=== PATIENT | female | born 1950 | race Caucasian/White ===

== ENCOUNTER 2019-02-12 15:03 | Emergency (ER) | payer MEDICARE ==
[2019-02-12] MEDS ORDERED: Sodium Chloride 0.9% 1,000 ML IV ONE (15:37)
--- NOTE | 2019-02-12 15:46 | EDM.PDOC ---
ED HPI GENERAL MEDICAL PROBLEM - General Chief Complaint: Syncope Stated Complaint: PASSED OUT Time Seen by Provider: 02/12/19 15:05 Source of Information: Reports: Patient, Family History Limitations: Reports: No Limitations - History of Present Illness INITIAL COMMENTS - FREE TEXT/NARRATIVE: 68 y.o.w.esther came with her family to the ed because she "past nearly" while in her kitchen. She suddenly fainted got weak and dizzy, nmade it "to chair just in time" just in time not to fall. Pt did not pass out. She did urinated a "a lot " in the past few days. No heart palpitations. Pt sated she was improving on the way to the ed and feels much better now. No N/V/D, no dizziness. Similar symptoms occurred about a year ago. At that time, she did not seek medical attention. No C/P, no SOB or any other acute med issues. BP 112/74Pulse 64 RR 17 Pulse ox 97% on RA Temp 36.6 Onset Date: 02/12/19 Onset Time: 14:00 Duration: Hour(s):, Improving Location: Reports: Generalized Quality: Reports: Other Severity: Mild Improves with: Reports: Rest Worsens with: Reports: Movement Context: Reports: Other Associated Symptoms: Reports: No Other Symptoms - Related Data Allergies Allergy/AdvReac Type Severity Reaction Status Date / Time Penicillins Allergy Hives Verified 02/12/19 15:26 Home Meds: Home Meds Ciprofloxacin HCl [Cipro] 500 mg PO BID #20 tablet 02/12/19 [Rx] ED ROS GENERAL - Review of Systems Review Of Systems: See Below Constitutional: Reports: No Symptoms HEENT: Reports: No Symptoms Respiratory: Reports: No Symptoms Cardiovascular: Reports: No Symptoms Endocrine: Reports: No Symptoms GI/Abdominal: Reports: No Symptoms : Reports: Urgency (to urinale) Musculoskeletal: Reports: No Symptoms Skin: Reports: No Symptoms Neurological: Reports: No Symptoms Psychiatric: Reports: No Symptoms Hematologic/Lymphatic: Reports: No Symptoms Immunologic: Reports: No Symptoms ED EXAM, NEURO - Physical Exam Exam: See Below Exam Limited By: No Limitations General Appearance: Alert, WD/WN, Mild Distress Eye Exam: Bilateral Eye: Normal Inspection Ears: Normal External Exam Nose: Normal Inspection Throat/Mouth: Normal Inspection, Normal Lips, Normal Voice, No Airway Compromise Head Exam: Atraumatic, Normocephalic Neck: Normal Inspection, Supple, Non-Tender, Full Range of Motion Respiratory/Chest: No Respiratory Distress, Lungs Clear, Normal Breath Sounds, No Accessory Muscle Use, Chest Non-Tender Cardiovascular: Normal Peripheral Pulses, Regular Rate, Rhythm, No Edema, No Gallop, No Murmur, No Rub GI/Abdominal: Normal Bowel Sounds, Soft, Non-Tender, No Organomegaly, No Distention, No Abnormal Bruit, No Mass, Pelvis Stable (Female) Exam: Deferred Rectal (Female) Exam: Deferred Neurological: Alert, Normal Mood/Affect, Normal Dorsiflexion, CN II-XII Intact, Normal Gait, Oriented x 3 Back Exam: Normal Inspection, Full Range of Motion Extremities: Normal Inspection, Normal Range of Motion, Non-Tender Psychiatric: Normal Affect, Normal Mood Skin Exam: Warm, Dry, Intact, Normal Color, No Rash EKG INTERPRETATION EKG Date: 02/12/19 Time: 15:40 Rhythm: NSR Rate (Beats/Min): 62 Hecker: Normal P-Wave: Present QRS: Normal ST-T: Normal QT: Normal Comparison: NA - No Prior EKG Course - Vital Signs Text/Narrative:: 68 y.o.w.f came with her family to the ed because she "past nearly" while in her kitchen. She suddenly fainted got weak and dizzy, nmade it "to chair just in time" just in time not to fall. Pt did not pass out. She did urinated a "a lot " in the past few days. No heart palpitations. Pt sated she was improving on the way to the ed and feels much better now. No N/V/D, no dizziness. Similar symptoms occurred about a year ago. At that time, she did not seek medical attention. No C/P, no SOB or any other acute med issues. BP 112/74Pulse 64 RR 17 Pulse ox 97% on RA Temp 36.6 PE: WNWD W F in NAD Labs: CBC, BMP were nl. UA was pos for UTI ECG: NSR Impression; UTI, Dehydration, S/P Vasovagal near syncope Tx: Cipro, NS Reexam: Orthostatics were neg, pt wa able to ambulate Plan: D/C with instructions Last Recorded V/S: Last Vital Signs Temp 36.6 C 02/12/19 15:05 Pulse 63 02/12/19 15:05 Resp 17 02/12/19 15:05 BP 112/74 02/12/19 15:05 Pulse Ox 99 02/12/19 15:05 Orthostatic Blood Pressure [ 184/92 Standing] Orthostatic Blood Pressure [ 143/92 Sitting] Orthostatic Blood Pressure [ 138/84 Supine] - Orders/Labs/Meds Orders: Active Orders 24 hr Category Date Time Status EKG Documentation Completion [RC] ASDIRECTED Care 02/12/19 15:38 Active Orthostatic Vital Signs [RC] ASDIRECTED Care 02/12/19 16:43 Active CULTURE URINE [RM] Stat Lab 02/12/19 16:36 Received EKG 12 Lead [EK] Routine Ther 02/12/19 15:37 Ordered Labs: Laboratory Tests 02/12/19 02/12/19 02/12/19 Range/Units 15:50 15:50 15:50 WBC 8.1 (4.5-12.0) X10-3/uL RBC 4.86 (3.23-5.20) x10(6)uL Hgb 15.3 (11.5-15.5) g/dL Hct 44.1 (30.0-51.3) % MCV 90.7 (80-96) fL MCH 31.5 (27.7-33.6) pg MCHC 34.7 (32.2-35.4) g/dL RDW 13.4 (11.5-15.5) % Plt Count 228 (125-369) X10(3)uL MPV 8.6 (7.4-10.4) fL Neut % (Auto) 58.7 (46-82) % Lymph % (Auto) 29.5 (13-37) % [place] % (Auto) 9.5 (4-12) % Eos % (Auto) 2 (1.0-5.0) % Baso % (Auto) 1 (0-2) % Neut # (Auto) 4.8 (1.6-8.3) # Lymph # (Auto) 2.4 (0.6-5.0) # [place] # (Auto) 0.8 (0.0-1.3) # Eos # (Auto) 0.1 (0.0-0.8) # Baso # (Auto) 0.0 (0.0-0.2) # Sodium 143 (135-145) mmol/L Potassium 3.9 (3.5-5.3) mmol/L Chloride 104 (100-110) mmol/L Carbon Dioxide 31 (21-32) mmol/L BUN 16 (7-18) mg/dL Creatinine 1.1 H (0.55-1.02) mg/dL Est Cr Clr Drug Dosing 51.15 mL/min Estimated GFR (MDRD) 49 L (>60) BUN/Creatinine Ratio 14.5 (9-20) Glucose 114 (80-116) mg/dL Calcium 10.1 (8.6-10.2) mg/dL Troponin I < 0.017 L (<0.017-0.056) ng/mL Urine Color (YELLOW) Urine Appearance (CLEAR) Urine pH (5.0-6.5) Ur Specific [place] (1.010-1.025) Urine Protein (NEGATIVE) mg/dL Urine Glucose (UA) (NORMAL) mg/dL Urine Ketones (NEGATIVE) mg/dL Urine Occult Blood (NEGATIVE) Urine Nitrite (NEGATIVE) Urine Bilirubin (NEGATIVE) Urine Urobilinogen (NEGATIVE) mg/dL Ur Leukocyte Esterase (NEGATIVE) Urine RBC (0-5) Urine WBC (0-5) Ur Squamous Epith Cells (NS,R,O) Urine Bacteria (NS) Hyaline Casts (NS) Coarse Granular Casts (NS) WBC Casts (NS) Urine Mucus (NS) 02/12/19 Range/Units 16:36 WBC (4.5-12.0) X10-3/uL RBC (3.23-5.20) x10(6)uL Hgb (11.5-15.5) g/dL Hct (30.0-51.3) % MCV (80-96) fL MCH (27.7-33.6) pg MCHC (32.2-35.4) g/dL RDW (11.5-15.5) % Plt Count (125-369) X10(3)uL MPV (7.4-10.4) fL Neut % (Auto) (46-82) % Lymph % (Auto) (13-37) % [place] % (Auto) (4-12) % Eos % (Auto) (1.0-5.0) % Baso % (Auto) (0-2) % Neut # (Auto) (1.6-8.3) # Lymph # (Auto) (0.6-5.0) # [place] # (Auto) (0.0-1.3) # Eos # (Auto) (0.0-0.8) # Baso # (Auto) (0.0-0.2) # Sodium (135-145) mmol/L Potassium (3.5-5.3) mmol/L Chloride (100-110) mmol/L Carbon Dioxide (21-32) mmol/L BUN (7-18) mg/dL Creatinine (0.55-1.02) mg/dL Est Cr Clr Drug Dosing mL/min Estimated GFR (MDRD) (>60) BUN/Creatinine Ratio (9-20) Glucose (80-116) mg/dL Calcium (8.6-10.2) mg/dL Troponin I (<0.017-0.056) ng/mL Urine Color Yellow (YELLOW) Urine Appearance Slightly cloudy (CLEAR) Urine pH 5.0 (5.0-6.5) Ur Specific [place] 1.020 (1.010-1.025) Urine Protein Negative (NEGATIVE) mg/dL Urine Glucose (UA) Normal (NORMAL) mg/dL Urine Ketones 15 H (NEGATIVE) mg/dL Urine Occult Blood Negative (NEGATIVE) Urine Nitrite Negative (NEGATIVE) Urine Bilirubin Small H (NEGATIVE) Urine Urobilinogen 1 H (NEGATIVE) mg/dL Ur Leukocyte Esterase Moderate H (NEGATIVE) Urine RBC 0-5 (0-5) Urine WBC 5-10 H (0-5) Ur Squamous Epith Cells Few H (NS,R,O) Urine Bacteria Few H (NS) Hyaline Casts Few H (NS) Coarse Granular Casts Occasional H (NS) WBC Casts Occasional H (NS) Urine Mucus Moderate H (NS) Meds: Medications Discontinued Medications Generic Name Dose Route Start Last Admin Trade Name Freq PRN Reason Stop Dose Admin Ciprofloxacin 500 mg 02/12/19 16:58 02/12/19 17:04 Ciprofloxacin Hcl PO 02/12/19 16:59 500 mg ONETIME ONE Administration Sodium Chloride 1,000 mls @ 999 mls/hr 02/12/19 15:37 02/12/19 16:21 Normal Saline IV 02/12/19 16:37 999 mls/hr .BOLUS ONE Administration Departure - Departure Time of Disposition: 17:02 Disposition: Home, Self-Care 01 Condition: Good (dehydrat) Clinical Impression: Dehydration UTI (urinary tract infection) Qualifiers: Urinary tract infection type: acute cystitis Hematuria presence: without hematuria Qualified Code(s): N30.00 - Acute cystitis without hematuria - Discharge Information Prescriptions: Ciprofloxacin HCl [Cipro] 500 mg PO BID #20 tablet Instructions: Urinary Tract Infection, Adult, Ciprofloxacin tablets Referrals: PCP,None [Primary Care Provider] - Forms: ED Department Discharge Additional Instructions: Please increase water intake, please take the meds as recommended. Please f/u, come back if your symptoms get worse acutely - My Orders Last 24 Hours: My Active Orders 02/12/19 15:37 EKG 12 Lead [EK] Routine 02/12/19 15:38 EKG Documentation Completion [RC] ASDIRECTED 02/12/19 16:36 CULTURE URINE [RM] Stat 02/12/19 16:43 Orthostatic Vital Signs [RC] ASDIRECTED - Assessment/Plan Last 24 Hours: My Active Orders 02/12/19 15:37 EKG 12 Lead [EK] Routine 02/12/19 15:38 EKG Documentation Completion [RC] ASDIRECTED 02/12/19 16:36 CULTURE URINE [RM] Stat 02/12/19 16:43 Orthostatic Vital Signs [RC] ASDIRECTED
[2019-02-12] MEDS ORDERED: Ciprofloxacin 500 MG Tab PO ONE (16:58)
== END 2019-02-12 17:17 | disposition home or self-care (01) ==
LOC: FB.ED 15:03
DX: N30.00 Acute cystitis without hematuria (principal); E86.0 Dehydration; R55 Syncope and collapse
CPT/HCPCS: 36415; 80048; 81001; 84484; 85025; 87086; 93005; 96360; 99284; A9270; J7030; 99283

== ENCOUNTER 2021-08-23 06:13 | Emergency (ER) | payer MEDICARE ==
[2021-08-23] MEDS ORDERED: Albuterol/Ipratropium 3.0-0.5 MG/3 ML Neb Soln NEB ONE (06:57)
[2021-08-23 07:13] VITALS: PULSE 90
[2021-08-23 08:38] VITALS: BP 148/83
== END 2021-08-23 08:32 | disposition home or self-care (01) ==
LOC: FB.ED 06:13
DX: R05.9 Cough, unspecified (principal); R06.2 Wheezing; F17.200 Nicotine dependence, unspecified, uncomplicated; Z88.0 Allergy status to penicillin; Z20.822 Contact with and (suspected) exposure to COVID-19
CPT/HCPCS: 36415; 71046; 80053; 84484; 85025; 86140; 93005; 94640; 99285-25; J7620-GY; U0002

== ENCOUNTER 2024-01-07 13:26 | Emergency (ER) | payer MEDICARE ==
[2024-01-07] MEDS ORDERED: traMADol 50 MG Tab PO ONE (13:27)
[2024-01-07] MEDS ORDERED: Sodium Chloride 0.9% 10 ML Syringe FLUSH PRN (13:47)
[2024-01-07] MEDS: Aspirin 81 MG Tab.Chew PO ONE (13:51)
[2024-01-07 14:00] LABS: BASOPHILS ABSOLUTE AUTO 0.1 x10-3/uL (0.0-0.1); BASOPHILS PERCENT AUTO 0.7 % (0.2-1.5); EOSINOPHILS ABSOLUTE AUTO 0.2 x10-3/uL (0.0-0.8); EOSINOPHILS PERCENT AUTO 2.1 % (0.6-8.1); HEMATOCRIT 45.6 % (34.2-48.2); HEMOGLOBIN 15.1 g/dL (11.4-15.5); LYMPHOCYTES ABSOLUTE AUTO 2.7 x10-3/uL (1.0-4.4); LYMPHOCYTES PERCENT AUTO 31.4 % (18.4-52.1); MEAN CORPUSCULAR HEMOGLOBIN 30.4 pg (23.9-33.9); MEAN CORPUSCULAR HGB CONC 33.1 g/dL (31.9-34.8); MEAN PLATELET VOLUME 9.4 fL (7.1-12.4); MONOCYTES ABSOLUTE AUTO 0.7 x10-3/uL (0.3-1.0); MONOCYTES PERCENT AUTO 7.8 % (4.4-15.7); NEUTROPHILS ABSOLUTE AUTO 5.1 x10-3/uL (1.5-6.3); PLATELET COUNT,PLT 246 x10(3)uL (151-488); RED BLOOD CELL COUNT 4.96 x10(6)uL (3.60-5.20); RED CELL DISTRIBUTION WIDTH 14.3 % (12.3-16.5); WHITE BLOOD CELL COUNT,WBC 8.7 x10-3/uL (3.0-10.3)
[2024-01-07 14:02] LABS: BLOOD UREA NITROGEN,BUN 17 mg/dL (7-18); BUN/CREATININE RATIO 18.9 (9-20); CALCIUM 9.6 mg/dL (8.6-10.2); CARBON DIOXIDE,CO2 28 mmol/L (21-32); CHLORIDE,CL 104 mmol/L (100-110); CREATININE 0.9 mg/dL (0.55-1.02); EST CRCL DRUG DOSING (CG) 56.16 mL/min; ESTIMATED GFR 68 mL/min (>60); GLUCOSE RANDOM 102 mg/dL (80-116); SODIUM,NA 142 mmol/L (135-145)
[2024-01-07 14:13] LABS: A/G RATIO 1.1; ALANINE AMINOTRANSFERASE,ALT 24 U/L (12-36); ALBUMIN 3.8 g/dL (3.2-4.6); ALKALINE PHOSPHATASE 93 IU/L (56-112); ASPARTATE AMNIOTRANSFERASE,AST 17 IU/L (5-25); BILIRUBIN TOTAL 0.6 mg/dL (0.1-1.3); MAGNESIUM 1.9 mg/dL (1.8-2.5); PROTEIN TOTAL,TP 7.3 g/dL (6.0-8.0)
[2024-01-07] MEDS: Ketorolac 30 MG/ML SDV IVPUSH ONE (14:33)
[2024-01-07] MEDS: Sodium Chloride 0.9% 500 ML IV ONE (15:55)
[2024-01-07] MEDS: Iopamidol 755 Mg/ML 100 ML Bottle IV SCH (15:56)
== END 2024-01-07 17:03 | disposition home or self-care (01) ==
LOC: FB.ED 13:26
DX: R07.89 Other chest pain (principal); M94.0 Chondrocostal junction syndrome [Tietze]; R91.8 Other nonspecific abnormal finding of lung field; J44.9 Chronic obstructive pulmonary disease, unspecified; Z90.49 Acquired absence of other specified parts of digestive tract; Z87.891 Personal history of nicotine dependence; Z79.899 Other long term (current) drug therapy; Z88.0 Allergy status to penicillin
CPT/HCPCS: 36415; 71046; 71275; 80053; 83735; 84484; 85025; 85379; 93005; 96361; 96374; 99285; A9270; J1885; J7040; Q9967